=== PATIENT | female | born 1950 | race African-American/Black ===

== ENCOUNTER 2020-08-27 18:32 | Inpatient (IN) ==
[2020-08-27] MEDS ORDERED: MORPHINE 4 MG/1 ML VIAL IV STA (19:04)
[2020-08-27] MEDS ORDERED: SODIUM CHLORIDE 0.9% 1,000 ML IV STA ×3 (19:04→22:48)
[2020-08-27] MEDS ORDERED: ONDANSETRON 4 MG/2 ML VIAL IV ONE (19:04)
[2020-08-27 19:11] LABS: Basophils # 0.1 10*3/uL (0.0-0.2); Basophils % 0.3 % (0.0-0.8); Hematocrit 43.5 VOL% (35.7-47.0); Hemoglobin 14.2 GM/DL (12.0-16.0); Immature Granulocytes % 1.8 %; Immature Granulocytes Absolute 0.52 #; Lymphocytes % 3.5 % (21.3-54.2); Mean Corpuscular HGB Conc 32.6 GM/DL (32-36); Mean Corpuscular Volume 95.4 FL (87-102); Mean Platelet Volume 11.4 FL (9.6-12.0); Monocytes % 4.4 % (1.7-12.7); Platelet Count 314 T/CUMM (130-400); Red Blood Count 4.56 MC/CUMM (3.8-5.5); Red Cell Distribution Width 12.5 % (9.3-17.3); White Blood Count 28.1 T/CUMM (4-12)
[2020-08-27] MEDS ORDERED: INSULIN REGULAR 100 UNIT/ML IV STA (19:15)
[2020-08-27 19:37] LABS: Band Neutrophils 15 % (0-10); Lymphocytes 2 % (20-55); Metamyelocytes 2 %; Platelet Estimate Normal; Segmented Neutrophils 79 % (50-85); Total Cells Counted 100
[2020-08-27 19:41] LABS: ABG Base Excess -8.8 MMOL/L (-2.5-2.5); ABG HCO3 17.4 MMOL/L (20-26); ABG Oxygen Saturation 98.8 % (95-100); ABG PH 7.454 (7.35-7.45); ABG TCO2 11.6 MMOL/L (23-27)
[2020-08-27 19:44] LABS: ABG PCO2 18.8 MM HG (35-48)
[2020-08-27 20:04] LABS: Bilirubin,Urine Negative (Negative); Blood, Urine Small mg/dL (Negative); Glucose,Urine (UA) >=500 mg/dL (Negative); Ketones,Urine 20 mg/dL (Negative); Nitrite,Urine Negative (Negative); Protein,Urine Negative; RBC,Urine 4 /HPF (0-4); Squamous Epithelial Cell,Urine Occasional /HPF (0-10); Urine Appearance CLEAR (Clear); Urine Color Colorless (Yellow); Urine Specific Gravity 1.012 (1.001-1.035); Urine Urobilinogen < 2.0 EU/DL (0.2-1.0); WBC,Urine 16 /HPF (0-6)
[2020-08-27] MEDS ORDERED: INSULIN REGULAR DRIP 100 ML IV PRN (20:09)
[2020-08-27] MEDS ORDERED: cefTRIAXone 1,000 MG in SODIUM CHLORIDE 0.9% 100 ML IV STA (20:40)
[2020-08-27 21:33] LABS: Albumin 2.8 G/DL (3.4-5.0); Bilirubin,Total 0.5 MG/DL (0.2-1.0); Calcium 8.7 MG/DL (8.5-10.1); Osmolality,Calculated 302.8 MOS/KG (273-304); Potassium 4.4 MMOL/L (3.5-5.1)
[2020-08-27] MEDS ORDERED: LABETALOL 20 MG/4 ML SYRINGE IV STA (21:42)
[2020-08-27] MEDS ORDERED: LORazepam 2 MG/1 ML VIAL IV STA (22:27)
[2020-08-27] MEDS ORDERED: SODIUM PHOSPHATE IV PRN (22:51)
[2020-08-27] MEDS ORDERED: diphenhydrAMINE CAP 25 MG CAPSULE PO PRN (22:51)
[2020-08-27] MEDS ORDERED: SODIUM CHLORIDE 0.9% IV PRN (22:51)
[2020-08-27] MEDS ORDERED: MAGNESIUM SULF RIDER 2 GM in PREMIX 1 EACH IV PRN (22:51)
[2020-08-27] MEDS ORDERED: hydrALAZINE 20 MG/1 ML VIAL IV PRN (22:51)
[2020-08-27] MEDS ORDERED: ONDANSETRON 4 MG/2 ML VIAL IV PRN (22:51)
[2020-08-27] MEDS ORDERED: MAGNESIUM SULF RIDER 4 GM in PREMIX 1 EACH IV PRN (22:51)
[2020-08-27] MEDS ORDERED: DEXTROSE 50% 25 GM/50 ML VIAL IV PRN ×2 (22:51)
[2020-08-27] MEDS ORDERED: INSULIN REGULAR 100 UNIT/ML IV ONE (22:51)
[2020-08-27] MEDS ORDERED: NICOTINE 21 MG/24 HR PATCH TRANSDERM PRN (22:51)
[2020-08-27] MEDS ORDERED: SODIUM CHLORIDE 0.9% 1,000 ML IV ONE (22:51)
[2020-08-27] MEDS ORDERED: SODIUM BICARB INJ 100 MEQ in STERILE WATER INJ 400 ML IV PRN (22:51)
[2020-08-27] MEDS ORDERED: SODIUM CHLORIDE 0.9% 1,750 ML IV ONE (22:51)
[2020-08-27] MEDS ORDERED: ACETAMINOPHEN 325 MG TABLET PO PRN (22:51)
[2020-08-27] MEDS ORDERED: ALBUTEROL 2.5 MG/3 ML NEB RESP TX PRN (22:51)
[2020-08-27] MEDS ORDERED: INSULIN REGULAR DRIP 100 ML IV SCH (23:00)
[2020-08-28 01:05] LABS: Allen Test Positive; Pt O2 Delivery Device Room Air
[2020-08-28 01:06] LABS: ABG Base Excess -3.8 MMOL/L (-2.5-2.5); ABG HCO3 21.3 MMOL/L (20-26); ABG Oxygen Saturation 97.4 % (95-100); ABG PCO2 29.4 MM HG (35-48); ABG PH 7.429 (7.35-7.45); ABG TCO2 17.2 MMOL/L (23-27)
[2020-08-28] MEDS: SODIUM CHLORIDE 0.9% 1,000 ML IV SCH ×2 (01:27→04:56)
[2020-08-28 01:52] LABS: Calcium 8.7 MG/DL (8.5-10.1); Osmolality,Calculated 290.7 MOS/KG (273-304); Potassium 4.3 MMOL/L (3.5-5.1)
[2020-08-28] MEDS: PIPERACILLIN/TAZOBACTAM 3,375 MG in SODIUM CHLORIDE 0.9% 100 ML IV SCH ×3 (02:51→16:25)
[2020-08-28] MEDS ORDERED: SODIUM CHLORIDE 0.9% 1,000 ML IV SCH (03:52)
[2020-08-28] MEDS ORDERED: VANCOMYCIN INJ 1,000 MG in SODIUM CHLORIDE 0.9% 250 ML IV SCH (05:00)
[2020-08-28 05:21] LABS: ABG HCO3 21.9 MMOL/L (20-26); ABG Oxygen Saturation 96.9 % (95-100); ABG PCO2 32.3 MM HG (35-48); ABG PH 7.417 (7.35-7.45); ABG PO2 86.3 MM HG (80-95); ABG TCO2 18.9 MMOL/L (23-27)
[2020-08-28 06:01] LABS: Calcium 8.4 MG/DL (8.5-10.1); Osmolality,Calculated 294.3 MOS/KG (273-304); Potassium 4.4 MMOL/L (3.5-5.1)
[2020-08-28 06:37] LABS: Basophils # 0.1 10*3/uL (0.0-0.2); Basophils % 0.4 % (0.0-0.8); Eosinophils % 0.1 % (0.00-10.9); Hematocrit 30.5 VOL% (35.7-47.0); Hemoglobin 9.9 GM/DL (12.0-16.0); Immature Granulocytes % 0.9 %; Immature Granulocytes Absolute 0.22 #; Lymphocytes # 1.9 10*3/uL (1.4-4.0); Lymphocytes % 7.5 % (21.3-54.2); Mean Corpuscular HGB Conc 32.5 GM/DL (32-36); Mean Corpuscular Volume 95.3 FL (87-102); Mean Platelet Volume 10.7 FL (9.6-12.0); Monocytes % 5.6 % (1.7-12.7); Neutrophils % 85.5 % (38.7-73.9); Platelet Count 234 T/CUMM (130-400); Red Cell Distribution Width 12.7 % (9.3-17.3)
[2020-08-28 06:55] LABS: Lymphocytes 9 % (20-55); Platelet Estimate Adequate; Segmented Neutrophils 85 % (50-85); Total Cells Counted 100
[2020-08-28 06:56] LABS: Calcium 7.6 MG/DL (8.5-10.1); Osmolality,Calculated 298.6 MOS/KG (273-304)
[2020-08-28] MEDS: DEXT 5% NACL 0.45% KCL 20 MEQ 20 MEQ/1,000 ML BAG IV SCH ×4 (08:37→16:21)
[2020-08-28] MEDS: PANTOPRAZOLE 40 MG VIAL IV SCH (08:37)
[2020-08-28] MEDS ORDERED: LEVOFLOXACIN INJ 750 MG in PREMIX 1 EACH IV SCH (09:00)
[2020-08-28] MEDS: SODIUM CHLOR 0.45% KCL 20 MEQ 20 MEQ/1,000 ML BAG IV SCH ×2 (12:18→15:54)
[2020-08-28] MEDS ORDERED: SODIUM CHLORIDE 0.45% 1,000 ML IV SCH (15:52)
[2020-08-28] MEDS ORDERED: clonazePAM 0.5 MG TABLET PO PRN (17:30)
[2020-08-28] MEDS: INSULIN REGULAR 100 UNIT/ML SUBCUT SCH ×2 (17:55→23:58)
[2020-08-28] MEDS: SODIUM CHLORIDE 0.45% 1,000 ML IV SCH (17:56)
[2020-08-28] MEDS: MIRTAZAPINE 15 MG TABLET PO SCH (20:14)
[2020-08-28] MEDS: INSULIN GLARGINE 100 UNIT/ML SUBCUT SCH (20:14)
[2020-08-28] MEDS: MORPHINE 4 MG/1 ML VIAL IV PRN (20:15)
[2020-08-29] MEDS: SODIUM CHLORIDE 0.45% 1,000 ML IV SCH (01:51)
[2020-08-29] MEDS: PIPERACILLIN/TAZOBACTAM 3,375 MG in SODIUM CHLORIDE 0.9% 100 ML IV SCH ×3 (01:51→17:17)
[2020-08-29 04:50] LABS: Basophils # 0.1 10*3/uL (0.0-0.2); Basophils % 0.3 % (0.0-0.8); Eosinophils # 0.2 10*3/uL (0.0-0.87); Eosinophils % 1.1 % (0.00-10.9); Hematocrit 29.8 VOL% (35.7-47.0); Hemoglobin 9.8 GM/DL (12.0-16.0); Immature Granulocytes % 0.8 %; Immature Granulocytes Absolute 0.15 #; Lymphocytes # 2.7 10*3/uL (1.4-4.0); Lymphocytes % 13.5 % (21.3-54.2); Mean Corpuscular HGB Conc 32.9 GM/DL (32-36); Mean Corpuscular Volume 94.3 FL (87-102); Mean Platelet Volume 11.1 FL (9.6-12.0); Monocytes % 7.1 % (1.7-12.7); Neutrophils % 77.2 % (38.7-73.9); Platelet Count 225 T/CUMM (130-400); Red Blood Count 3.16 MC/CUMM (3.8-5.5); Red Cell Distribution Width 12.9 % (9.3-17.3); White Blood Count 19.6 T/CUMM (4-12)
[2020-08-29 05:37] LABS: Calcium 8.3 MG/DL (8.5-10.1); Osmolality,Calculated 272.8 MOS/KG (273-304); Potassium 3.7 MMOL/L (3.5-5.1)
[2020-08-29 05:39] LABS: Troponin I 0.046 NG/ML (0.00-0.045)
[2020-08-29] MEDS: INSULIN REGULAR 100 UNIT/ML SUBCUT SCH ×4 (05:51→20:47)
[2020-08-29 06:30] LABS: Band Neutrophils 3 % (0-10); Hypochromasia 1+; Lymphocytes 17 % (20-55); Metamyelocytes 1 %; Segmented Neutrophils 74 % (50-85); Total Cells Counted 100
[2020-08-29 06:31] LABS: Microcytosis 1+
[2020-08-29] MEDS: POTASSIUM CHLORIDE RIDER 10 MEQ in PREMIX 1 EACH IV PRN (06:38)
[2020-08-29] MEDS ORDERED: fentaNYL 100 MCG/2 ML VIAL ONE (08:28)
[2020-08-29] MEDS ORDERED: SUCCINYLCHOLINE 200 MG/10 ML VIAL ONE (08:28)
[2020-08-29] MEDS ORDERED: ONDANSETRON 4 MG/2 ML VIAL ONE (08:28)
[2020-08-29] MEDS ORDERED: propofoL 200 MG/20 ML VIAL IV ONE ×2 (08:28→09:54)
[2020-08-29] MEDS ORDERED: ROCURONIUM 50 MG/5 ML VIAL IV ONE (08:28)
[2020-08-29] MEDS ORDERED: LIDOCAINE 2% 5 ML VIAL ONE (08:28)
[2020-08-29] MEDS: LEVOFLOXACIN INJ 750 MG in PREMIX 1 EACH IV SCH (09:08)
[2020-08-29] MEDS ORDERED: ETOMIDATE 40 MG/20 ML VIAL IV ONE (09:54)
[2020-08-29] MEDS: POTASSIUM CHLORIDE INJ 10 MEQ in DEXTROSE 5% LACTATED RINGERS 1,000 ML IV SCH (11:03)
[2020-08-29] MEDS: amLODIPine 10 MG TABLET PO SCH (11:07)
[2020-08-29] MEDS: PANTOPRAZOLE 40 MG VIAL IV SCH (11:08)
[2020-08-29] MEDS: ROSUVASTATIN 10 MG TABLET PO SCH (11:08)
[2020-08-29] MEDS: MORPHINE 4 MG/1 ML VIAL IV PRN ×2 (15:32→21:53)
[2020-08-29] MEDS: INSULIN GLARGINE 100 UNIT/ML SUBCUT SCH (20:46)
[2020-08-29] MEDS: MIRTAZAPINE 15 MG TABLET PO SCH (20:47)
[2020-08-30] MEDS: POTASSIUM CHLORIDE INJ 10 MEQ in DEXTROSE 5% LACTATED RINGERS 1,000 ML IV SCH ×3 (01:11→18:03)
[2020-08-30] MEDS: PIPERACILLIN/TAZOBACTAM 3,375 MG in SODIUM CHLORIDE 0.9% 100 ML IV SCH ×3 (01:15→18:03)
[2020-08-30 05:14] LABS: Basophils % 0.4 % (0.0-0.8); Eosinophils # 0.1 10*3/uL (0.0-0.87); Eosinophils % 1.2 % (0.00-10.9); Hematocrit 31.2 VOL% (35.7-47.0); Hemoglobin 10.2 GM/DL (12.0-16.0); Immature Granulocytes % 0.7 %; Immature Granulocytes Absolute 0.08 #; Lymphocytes # 2.2 10*3/uL (1.4-4.0); Lymphocytes % 19.3 % (21.3-54.2); Mean Corpuscular HGB Conc 32.7 GM/DL (32-36); Mean Corpuscular Volume 94.3 FL (87-102); Mean Platelet Volume 11.1 FL (9.6-12.0); Monocytes % 7.3 % (1.7-12.7); Neutrophils % 71.1 % (38.7-73.9); Platelet Count 220 T/CUMM (130-400); Red Blood Count 3.31 MC/CUMM (3.8-5.5); Red Cell Distribution Width 12.9 % (9.3-17.3); White Blood Count 11.3 T/CUMM (4-12)
[2020-08-30 05:22] LABS: Calcium 8.7 MG/DL (8.5-10.1); Osmolality,Calculated 285.1 MOS/KG (273-304); Potassium 3.6 MMOL/L (3.5-5.1)
[2020-08-30 07:10] LABS: Band Neutrophils 2 % (0-10); Eosinophils 2 % (0-10); Lymphocytes 14 % (20-55); Platelet Estimate Normal; Segmented Neutrophils 78 % (50-85); Total Cells Counted 100
[2020-08-30] MEDS: INSULIN REGULAR 100 UNIT/ML SUBCUT SCH ×4 (09:12→20:45)
[2020-08-30] MEDS: ROSUVASTATIN 10 MG TABLET PO SCH (09:13)
[2020-08-30] MEDS: amLODIPine 10 MG TABLET PO SCH (09:13)
[2020-08-30] MEDS: PANTOPRAZOLE 40 MG VIAL IV SCH (09:13)
[2020-08-30] MEDS: MIRTAZAPINE 15 MG TABLET PO SCH (20:45)
[2020-08-30] MEDS: INSULIN GLARGINE 100 UNIT/ML SUBCUT SCH (20:45)
[2020-08-30] MEDS: MORPHINE 4 MG/1 ML VIAL IV PRN (22:10)
[2020-08-31] MEDS: PIPERACILLIN/TAZOBACTAM 3,375 MG in SODIUM CHLORIDE 0.9% 100 ML IV SCH ×3 (00:30→16:47)
[2020-08-31 05:55] LABS: Basophils # 0.1 10*3/uL (0.0-0.2); Basophils % 0.6 % (0.0-0.8); Eosinophils # 0.2 10*3/uL (0.0-0.87); Eosinophils % 1.9 % (0.00-10.9); Hematocrit 32.9 VOL% (35.7-47.0); Hemoglobin 11.2 GM/DL (12.0-16.0); Immature Granulocytes % 0.4 %; Immature Granulocytes Absolute 0.04 #; Lymphocytes % 31.4 % (21.3-54.2); Mean Corpuscular Volume 92.9 FL (87-102); Mean Platelet Volume 10.6 FL (9.6-12.0); Monocytes % 7.1 % (1.7-12.7); Neutrophils % 58.6 % (38.7-73.9); Platelet Count 278 T/CUMM (130-400); Red Blood Count 3.54 MC/CUMM (3.8-5.5); Red Cell Distribution Width 12.8 % (9.3-17.3); White Blood Count 9.5 T/CUMM (4-12)
[2020-08-31 06:11] LABS: Potassium 3.5 MMOL/L (3.5-5.1)
[2020-08-31 06:13] LABS: Calcium 9.1 MG/DL (8.5-10.1); Osmolality,Calculated 289.7 MOS/KG (273-304); Potassium 3.5 MMOL/L (3.5-5.1)
[2020-08-31] MEDS: INSULIN REGULAR 100 UNIT/ML SUBCUT SCH ×4 (08:43→20:36)
[2020-08-31] MEDS: PANTOPRAZOLE 40 MG VIAL IV SCH (08:43)
[2020-08-31] MEDS: ROSUVASTATIN 10 MG TABLET PO SCH (08:43)
[2020-08-31] MEDS: amLODIPine 10 MG TABLET PO SCH (08:44)
[2020-08-31] MEDS: LEVOFLOXACIN INJ 750 MG in PREMIX 1 EACH IV SCH (08:48)
[2020-08-31] MEDS: POTASSIUM CHLORIDE INJ 10 MEQ in DEXTROSE 5% LACTATED RINGERS 1,000 ML IV SCH ×3 (11:29→20:44)
[2020-08-31] MEDS: MORPHINE 4 MG/1 ML VIAL IV PRN ×2 (12:21→21:41)
[2020-08-31] MEDS: INSULIN GLARGINE 100 UNIT/ML SUBCUT SCH (20:36)
[2020-08-31] MEDS: MIRTAZAPINE 15 MG TABLET PO SCH (20:36)
[2020-09-01] MEDS: PIPERACILLIN/TAZOBACTAM 3,375 MG in SODIUM CHLORIDE 0.9% 100 ML IV SCH ×2 (01:18→10:20)
[2020-09-01 05:11] LABS: Basophils # 0.1 10*3/uL (0.0-0.2); Basophils % 0.5 % (0.0-0.8); Eosinophils # 0.3 10*3/uL (0.0-0.87); Eosinophils % 2.4 % (0.00-10.9); Hematocrit 33.4 VOL% (35.7-47.0); Hemoglobin 10.9 GM/DL (12.0-16.0); Immature Granulocytes % 0.4 %; Immature Granulocytes Absolute 0.04 #; Lymphocytes # 3.4 10*3/uL (1.4-4.0); Lymphocytes % 32.3 % (21.3-54.2); Mean Corpuscular HGB Conc 32.6 GM/DL (32-36); Mean Corpuscular Volume 94.9 FL (87-102); Mean Platelet Volume 10.3 FL (9.6-12.0); Monocytes % 7.4 % (1.7-12.7); Platelet Count 314 T/CUMM (130-400); Red Blood Count 3.52 MC/CUMM (3.8-5.5); Red Cell Distribution Width 12.9 % (9.3-17.3); White Blood Count 10.5 T/CUMM (4-12)
[2020-09-01 05:33] LABS: Calcium 9.4 MG/DL (8.5-10.1); Osmolality,Calculated 285.8 MOS/KG (273-304); Potassium 3.2 MMOL/L (3.5-5.1)
[2020-09-01 05:36] LABS: Hypochromasia 1+; Microcytosis 1+; Platelet Estimate Adequate
[2020-09-01] MEDS: INSULIN REGULAR 100 UNIT/ML SUBCUT SCH ×2 (08:18→11:44)
[2020-09-01] MEDS: POTASSIUM CHLORIDE INJ 10 MEQ in DEXTROSE 5% LACTATED RINGERS 1,000 ML IV SCH (08:18)
[2020-09-01] MEDS: ROSUVASTATIN 10 MG TABLET PO SCH (08:19)
[2020-09-01] MEDS: POTASSIUM CHLORIDE RIDER 10 MEQ in PREMIX 1 EACH IV PRN ×2 (08:19→10:33)
[2020-09-01] MEDS: amLODIPine 10 MG TABLET PO SCH (08:19)
[2020-09-01] MEDS ORDERED: PANTOPRAZOLE 40 MG TABLET PO SCH (09:00)
[2020-09-01 11:19] VITALS: BP 153/70
[2020-09-02 17:31] LABS: Stone Analysis Interpretation SEE COMMENTS
== END 2020-09-01 13:15 | disposition home or self-care (01) | DRG 853 ==
LOC: EDUNIT# → EDBD → N.ED 18:32 → N.EDINP 22:51 → SUATTDRO 22:51 → N.ICU 08-28 00:30 → N.3E 08-29 15:18
PROVIDERS: ADMIT Internal Medicine; ATTEND Internal Medicine